=== PATIENT | female | born 1965 | race Caucasian/White ===

== ENCOUNTER → 2019-07-27 | Outpatient (CLI) | payer OTHER ==
[~2019-07-27] MED LIST: NECON1 EAC1; SYNTHROID100 MCG
--- NOTE | 2019-07-27 13:00 | Diagnostic Imaging Report ---
TECHNIQUE: Magnetic resonance imaging of the RIGHT SHOULDER was performed WITHOUT injected contrast. COMPARISON: None available. HISTORY: Right shoulder pain, fall FINDINGS: MUSCLES AND TENDONS: Rotator Cuff: Tendons: Supraspinatus: Intact Infraspinatus: Intact Teres Minor: Intact Subscapularis: Intact Muscles: No focal muscle atrophy. Biceps Tendon: The long head of the biceps tendon is intact and within the intertubercular groove. GLENOHUMERAL JOINT: Glenoid Labrum: No displaced tear. Articular Cartilage: No focal defect. AC JOINT AND ACROMION: Mild hypertrophic degenerative changes of the acromioclavicular joint. The acromion is unremarkable. BONE: No acute fracture. SOFT TISSUES: Otherwise, the soft tissues appear unremarkable. IMPRESSION: 1. Intact rotator cuff and labrum. 2. 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 Arnol Byers M.D. on 07/27/2019 12:56 PM
== END ==
LOC: MRI 09:44
PROVIDERS: ATTEND Family Medicine
DX: M25.511 Pain in right shoulder (principal); S42.034D Nondisplaced fracture of lateral end of right clavicle, subsequent encounter for fracture with routine healing